=== PATIENT | female | born 1945 | race Two or more races ===

== ENCOUNTER 2017-10-28 14:02 | Emergency (ER) | payer MEDICAID, MEDICARE, OTHER ==
[2017-10-28] VITALS (7 sets, daily range): BP systolic 85–127; BP diastolic 45–74
[~2017-10-28] VITALS: Ht 160 cm; Wt 54.4 kg
[~2017-10-28 14:02] MED LIST: ALENDRONATE SOD70 MG; CICLOPIROX6.6 ML; GLYBURIDE-METF1 EAC1; LISINOPRIL20 MG; NYSTATIN-TRIAMC15 G2; PATADAY2.5 ML; SIMVASTATIN40 MG
[2017-10-28] MEDS ORDERED: UNOBMED (14:22)
[2017-10-28] MEDS ORDERED: Acetaminophen 500mg (ES) tab ORAL ONE (14:30)
--- NOTE | 2017-10-28 14:58 | Diagnostic Imaging Report ---
Indication: Dyspnea Comparison: 03/11/2013 A single view chest radiograph was obtained. Findings: Cardiomediastinal appearance is within normal limits for age. Surgical clips noted in the left side of the neck Pulmonary vascularity is appropriate. The diaphragmatic contour is smooth and costophrenic angles are sharp. No pleural effusions are identified. The bones are osteopenic. Impression: No acute findings
[2017-10-28 15:04] LABS: ANION GAP 12 mmol/L (5-15); BLOOD UREA NITROGEN 30 mg/dL (7-18); CALCIUM 9.5 MG/DL (8.5-10.1); CARBON DIOXIDE 22 MMOL/L (21-32); CHLORIDE 88 MMOL/L (98-107); CREATININE 1.3 MG/DL (0.55-1.30); POTASSIUM 4.3 MMOL/L (3.5-5.1); SODIUM 122 MMOL/L (136-145)
[2017-10-28 15:07] LABS: HEMATOCRIT 34.5 % (37.0-47.0); MEAN CORPUSCULAR VOLUME 88 FL (80-99); PLATELET COUNT 269 K/UL (150-450); RED BLOOD COUNT 3.91 M/UL (4.20-5.40); RED CELL DISTRIBUTION WIDTH 10.6 % (11.6-14.8); WHITE BLOOD COUNT 10.2 K/UL (4.8-10.8)
--- NOTE | 2017-10-28 15:18 | Emergency Room Report ---
History of Present Illness General Chief Complaint: Generalized Weakness Source: Patient Present Illness HPI 72-year-old female presents ED for evaluation. Daughter at bedside. Patient states that she's been feeling weak for the last 3 days. States she came home today and was having nausea and vomiting. Daughter states patient felt "hot". Rectal temp 105. Patient tachycardic. Complaining of increased urinary symptoms and dysuria. Denies leg pain. Denies diarrhea. Denies chest pain or shortness of breath. Denies cough. No other aggravating relieving factors. Denies any other associated symptoms Allergies: Coded Allergies: No Known Allergies (Unverified , 03/11/13) Patient History Past Medical History: DM, HTN Past Surgical History: none Pertinent Family History: none Social History: Denies: smoking, alcohol use, drug use Now: No Immunizations: UTD Reviewed Nursing Documentation: PMH: Agreed; PSxH: Agreed Nursing Documentation-PMH Past Medical History: No History, Except For Hx Hypertension: Yes Hx Diabetes: Yes Hx Cancer: No Hx Gastrointestinal Problems: No Hx Neurological Problems: No Review of Systems All Other Systems: negative except mentioned in HPI Physical Exam Vital Signs Date Time Temp Pulse Resp B/P (MAP) Pulse Ox O2 Delivery O2 Flow Rate FiO2 10/28/17 14:10 97.6 136 18 127/69 96 Room Air 97.5 Sp02 EP Interpretation: reviewed, normal General Appearance: no apparent distress, alert, GCS 15, non-toxic Head: normocephalic, atraumatic Eyes: bilateral eye normal inspection, bilateral eye PERRL ENT: hearing grossly normal, normal pharynx, no angioedema, normal voice Neck: full range of motion, supple/symm/no masses Respiratory: chest non-tender, lungs clear, normal breath sounds, speaking full sentences Cardiovascular #1: no edema, tachycardia Cardiovascular #2: 2+ carotid (R), 2+ carotid (L), 2+ radial (R), 2+ radial (L) , 2+ dorsalis pedis (R), 2+ dorsalis pedis (L) Gastrointestinal: normal bowel sounds, non tender, soft, non-distended, no guarding, no rebound Rectal: deferred Genitourinary: normal inspection, no CVA tenderness Musculoskeletal: back normal, gait/station normal, normal range of motion, non- tender Neurologic: alert, oriented x3, responsive, motor strength/tone normal, sensory intact, speech normal Psychiatric: judgement/insight normal, memory normal, mood/affect normal, no suicidal/homicidal ideation Reflexes: 3+ bicep (R), 3+ bicep (L), 3+ tricep (R), 3+ tricep (L), 3+ knee (R) , 3+ knee (L) Skin: normal color, no rash, warm/dry, well hydrated Lymphatic: no adenopathy Medical Decision Making Diagnostic Impression: Primary Impression: Hyperglycemia Additional Impressions: Weakness Hyponatremia Sepsis Qualified Codes: A41.9 - Sepsis, unspecified organism Acute lower UTI ER Course Hospital Course 72 yo F presents to ED c/o weakness, fever, nausea Differential diagnoses include: Pneumonia, UTI, sepsis, dehydration, [place]/ unstable angina Clinical course Patient placed on stretcher. On computer consultant with tachycardia, fever. After initial history and physical, I ordered labs, IV fluids, EKG, chest x-ray , blood cultures, UA. given motrin, tylenol in ED. Labs - Na 122, no leukocytosis, glucose > 400 no evidence of DKA, troponins negative, UA grossly positive for UTI, lactate elevated EKG - sinus tachycardia, no acute ischemic changes interpreted by me CXR - no acute process Abx given. Given 30 mL per KG fluid bolus. Given insulin. Given antibiotics. Tachycardia has resolved Because of insurance patient will be transferred I feel this is a highly complex case requiring extensive working including EKG/ Rhythm strip, Xray/CT/US, Blood/urine lab work, repeat exams while in ED, and administration of strong opiates/narcotics for pain control, admission to hospital or close patient follow up. Diagnosis - UTI, hyperglycemia, weakness, hyponatremia, sepsis, UTI transferred in serious condition Labs Test 10/28/17 14:30 10/28/17 15:10 10/28/17 15:15 White Blood Count 10.2 K/UL (4.8-10.8) Red Blood Count 3.91 M/UL (4.20-5.40) Hemoglobin 12.0 G/DL (12.0-16.0) Hematocrit 34.5 % (37.0-47.0) Mean Corpuscular Volume 88 FL (80-99) Mean Corpuscular Hemoglobin 30.8 PG (27.0-31.0) Mean Corpuscular Hemoglobin Concent 34.8 G/DL (32.0-36.0) Red Cell Distribution Width 10.6 % (11.6-14.8) Platelet Count 269 K/UL (150-450) Mean Platelet Volume 5.7 FL (6.5-10.1) Neutrophils (%) (Auto) % (45.0-75.0) Lymphocytes (%) (Auto) % (20.0-45.0) Monocytes (%) (Auto) % (1.0-10.0) Eosinophils (%) (Auto) % (0.0-3.0) Basophils (%) (Auto) % (0.0-2.0) Differential Total Cells Counted 100 Neutrophils % (Manual) 78 % (45-75) Lymphocytes % (Manual) 10 % (20-45) Monocytes % (Manual) 4 % (1-10) Eosinophils % (Manual) 0 % (0-3) Basophils % (Manual) 0 % (0-2) Band Neutrophils 8 % (0-8) Platelet Estimate Adequate Platelet Morphology Normal Red Blood Cell Morphology Normal Sodium Level 122 MMOL/L (136-145) Potassium Level 4.3 MMOL/L (3.5-5.1) Chloride Level 88 MMOL/L (98-107) Carbon Dioxide Level 22 MMOL/L (21-32) Anion Gap 12 mmol/L (5-15) Blood Urea Nitrogen 30 mg/dL (7-18) Creatinine 1.3 MG/DL (0.55-1.30) Estimat Glomerular Filtration Rate mL/min (>60) Glucose Level 470 MG/DL (74-106) Lactic Acid Level 2.70 mmol/L (0.4-2.0) 1.90 mmol/L (0.66-2.22) Calcium Level 9.5 MG/DL (8.5-10.1) Total Bilirubin 0.6 MG/DL (0.2-1.0) Aspartate Amino Transf (AST/SGOT) 29 U/L (15-37) Alanine Aminotransferase (ALT/SGPT) 26 U/L (12-78) Alkaline Phosphatase 162 U/L (46-116) Total Creatine Kinase 556 U/L (26-308) Creatine Kinase MB 5.2 NG/ML (0.0-3.6) Creatine Kinase MB Relative Index 0.9 Troponin I 0.031 ng/mL (0.000-0.056) Pro-B-Type Natriuretic Peptide 904 pg/mL (0-125) Total Protein 8.7 G/DL (6.4-8.2) Albumin 3.9 G/DL (3.4-5.0) Globulin 4.8 g/dL Albumin/Globulin Ratio 0.8 (1.0-2.7) Acetone Level Negative (NEGATIVE) Urine Color Pale yellow Urine Appearance Cloudy Urine pH 6 (4.5-8.0) Urine Specific Dalton 1.010 (1.005-1.035) Urine Protein 3+ (NEGATIVE) Urine Glucose (UA) 4+ (NEGATIVE) Urine Ketones 2+ (NEGATIVE) Urine Blood 5+ (NEGATIVE) Urine Nitrite Positive (NEGATIVE) Urine Bilirubin Negative (NEGATIVE) Urine Urobilinogen Normal MG/DL (0.0-1.0) Urine Leukocyte Esterase 3+ (NEGATIVE) Urine RBC 5-10 /HPF (0 - 2) Urine WBC 40-60 /HPF (0 - 2) Urine Squamous Epithelial Cells Moderate /LPF (NONE/OCC) Urine Bacteria Many /HPF (NONE) EKG Diagnostic Results Rate: tachycardiac Rhythm: NSR ST Segments: no acute changes ASA given to the pt in ED: No Rhythm Strip Diag. Results EP Interpretation: yes Rhythm: NSR, no PVC's, no ectopy Chest X-Ray Diagnostic Results Chest X-Ray Diagnostic Results : Chest X-Ray Ordered: Yes # of Views/Limited/Complete: 1 View Indication: Other - weakness EP Interpretation: Yes Interpretation: no consolidation, no effusion, no pneumothorax, no acute cardiopulmonary disease Impression: No acute disease Electronically Signed by: Electronically signed by Kam Dobbins MD Last Vital Signs Date Time Temp Pulse Resp B/P (MAP) Pulse Ox O2 Delivery O2 Flow Rate FiO2 10/28/17 14:42 105.0 114 18 127/69 96 Room Air 105.0 Status: improved Disposition: XFER SHT-TRM HOSP Condition: Serious Referrals: NON PHYSICIAN (PCP) Kam Dobbins MD Oct 28, 2017 15:18
[2017-10-28 15:21] LABS: ALANINE AMINOTRANSFERASE 26 U/L (12-78); ALBUMIN 3.9 G/DL (3.4-5.0); ALBUMIN/GLOBULIN RATIO 0.8 (1.0-2.7); ALKALINE PHOSPHATASE 162 U/L (46-116); ASPARTATE AMINO TRANSFERASE 29 U/L (15-37); BILIRUBIN,TOTAL 0.6 MG/DL (0.2-1.0); CKMB 5.2 NG/ML (0.0-3.6); CREATINE KINASE 556 U/L (26-308)
[2017-10-28 15:31] LABS: APPEARANCE,URINE CLOUDY; BILIRUBIN, URINE NEGATIVE (NEGATIVE); COLOR,URINE PALE YELLOW; GLUCOSE, URINE (UA) 4+ (NEGATIVE); KETONES,URINE 2+ (NEGATIVE); LEUKOCYTE ESTERASE ,URINE 3+ (NEGATIVE); NITRITE,URINE POSITIVE (NEGATIVE); PH,URINE 6 (4.5-8.0); PROTEIN,URINE 3+ (NEGATIVE); UROBILINOGEN,URINE NORMAL MG/DL (0.0-1.0)
[2017-10-28] MEDS ORDERED: cefTRIAXone 1 GM in NS 55 ML IVPB ONE (15:45)
[2017-10-28] MEDS ORDERED: Insulin Human Regular 100units/ml 3ml IV ONE (16:45)
--- NOTE | 2017-11-01 17:37 | Cardiology Report ---
APPROVED REPORT EKG Measurement Heart [id number] [place] 130P-15 [id number] Sinus tachycardia Left axis deviation Abnormal ECG
== END 2017-10-28 21:40 | disposition short-term general hospital (02) ==
LOC: EMR 14:43 → EDBEDREQ 14:44 → EMR 21:40
DX: A41.9 Sepsis, unspecified organism (principal); N39.0 Urinary tract infection, site not specified; E11.65 Type 2 diabetes mellitus with hyperglycemia; E87.1 Hypo-osmolality and hyponatremia; I10 Essential (primary) hypertension; R00.0 Tachycardia, unspecified; R11.2 Nausea with vomiting, unspecified
CPT/HCPCS: 36415; 71045; 80053; 81003; 82009; 82550; 82553; 82962; 83605; 83880; 84484; 85007; 85025; 87040; 87086; 87181; 93005; 96361; 96365; 96375; 99285; J0696; J1815